=== PATIENT | female | born 1955 | race Two or more races ===

== ENCOUNTER 2018-11-08 15:04 | Emergency (ER) | payer OTHER ==
[~2018-11-08] VITALS: Ht 165.1 cm; Wt 68.0 kg
--- NOTE | 2018-11-08 15:30 | NUR ---
BIB SELF FOR BILATERAL HANDS PAIN AND SWELLING AND BILATERAL KNEE PAIN. TO ER BED 6, HOOKED TO MONITOR, PROVIDED W WARM BLANKET, AWAITING MD NEFF.
--- NOTE | 2018-11-08 15:31 | NUR ---
DR GONZALEZ AT BEDSIDE
[2018-11-08 15:35] LABS: BASOPHILS % (AUTO) 0.4 % (0.0-2.0); EOSINOPHILS % (AUTO) 2.3 % (0.0-6.0); HEMATOCRIT 36 % (33-45); HEMOGLOBIN 12.3 g/dL (11.5-14.8); LYMPHOCYTES # (AUTO) 2.9 /CMM (0.8-4.8); LYMPHOCYTES % (AUTO) 35.3 % (20.0-44.0); MEAN CORPUSCULAR HGB CONC 34 g/dl (31.0-36.0); MEAN CORPUSCULAR VOLUME 84 fL (82-100); MONOCYTES # (AUTO) 0.8 /CMM (0.1-1.30); MONOCYTES % (AUTO) 10.1 % (2.0-12.0); NEUTROPHILS # (AUTO) 4.3 /CMM (1.8-8.9); NEUTROPHILS % (AUTO) 51.9 % (43.0-81.0); PLATELET COUNT (AUTO) 288 /CMM (150-450); RED BLOOD CELL COUNT(AUTO) 4.28 MIL/uL (4.0-5.2); WHITE BLOOD COUNT (AUTO) 8.3 K/uL (4.3-11.0)
[2018-11-08 15:43] LABS: CALCIUM, SERUM 8.9 mg/dL (8.5-10.1); CREATININE 0.6 mg/dL (0.6-1.3); POTASSIUM 4.2 mmol/L (3.5-5.1)
[2018-11-08] MEDS ORDERED: IBUPROFEN 600 MG TABLET PO ONE ×2 (16:22→16:30)
--- NOTE | 2018-11-08 16:27 | NUR ---
Patient discharged to home in stable condition. Written and verbal after care instructions given. Patient verbalizes understanding of instruction.
[2018-11-08 16:29] VITALS: BP 142/86
== END 2018-11-08 16:30 | disposition home or self-care (01) ==
LOC: ER 15:07
DX: L03.113 Cellulitis of right upper limb (principal); M79.89 Other specified soft tissue disorders; G89.29 Other chronic pain; M54.9 Dorsalgia, unspecified
CPT/HCPCS: 36415; 73130-TC; 80048-TC; 83880; 85025-TC

== ENCOUNTER 2018-12-04 15:45 | Emergency (ER) | payer OTHER ==
[~2018-12-04] VITALS: Ht 162.6 cm; Wt 73.9 kg
--- NOTE | 2018-12-04 15:51 | NUR ---
BIB RA 39 FROM HOME, C/O CHEST AND UPPER BACK PAIN STARTING AROUND 1515. PT APPEARS ANXIOUS, MOANING AND CRYING. STATES PAIN IS LIKE PRESSURE AND 10/10. STATES SOME SOB, CHILLS, COUGH. HOOKED TO MONITOR, MADE COMFORTABLE. DAUGHTER AT BEDSIDE. READY FOR EVAL.
[2018-12-04] MEDS ORDERED: IV NS 0.9% 1,000 ML BAG IV ONE (16:00)
[2018-12-04 16:13] LABS: BASOPHILS % (AUTO) 0.4 % (0.0-2.0); EOSINOPHILS % (AUTO) 0.4 % (0.0-6.0); HEMATOCRIT 36 % (33-45); HEMOGLOBIN 12.2 g/dL (11.5-14.8); LYMPHOCYTES # (AUTO) 0.6 /CMM (0.8-4.8); LYMPHOCYTES % (AUTO) 6.4 % (20.0-44.0); MEAN CORPUSCULAR HGB CONC 34 g/dl (31.0-36.0); MEAN CORPUSCULAR VOLUME 84 fL (82-100); MONOCYTES # (AUTO) 0.3 /CMM (0.1-1.30); MONOCYTES % (AUTO) 3.6 % (2.0-12.0); NEUTROPHILS # (AUTO) 8.5 /CMM (1.8-8.9); NEUTROPHILS % (AUTO) 89.2 % (43.0-81.0); PLATELET COUNT (AUTO) 203 /CMM (150-450); RED BLOOD CELL COUNT(AUTO) 4.25 MIL/uL (4.0-5.2); WHITE BLOOD COUNT (AUTO) 9.6 K/uL (4.3-11.0)
--- NOTE | 2018-12-04 16:17 | NUR ---
PT TAKEN TO CT VIA EZRA
[2018-12-04 16:31] LABS: ALANINE AMINOTRANSFERASE 178 U/L (12-78); ALBUMIN 3.7 g/dL (3.4-5.0); ALKALINE PHOSPHATASE 180 U/L (46-116); ASPARTATE AMINOTRANSFERASE 241 U/L (15-37); BILIRUBIN,DIRECT 0.3 mg/dL (0.0-0.2); BILIRUBIN,TOTAL 0.8 mg/dL (0.2-1.0); CALCIUM, SERUM 9.1 mg/dL (8.5-10.1); CARBON DIOXIDE 26 mmol/L (21-32); CHLORIDE 101 mmol/L (98-107); CREATININE 0.8 mg/dL (0.6-1.3); GLUCOSE 130 mg/dL (74-106); POTASSIUM 3.9 mmol/L (3.5-5.1); SODIUM SERUM 138 mmol/L (136-145); TOTAL PROTEIN, SERUM 7.3 g/dL (6.4-8.2); UREA NITROGEN, BLOOD 14 mg/dL (7-18)
[2018-12-04] MEDS ORDERED: DULO30CA51 PO (16:35)
[2018-12-04] MEDS ORDERED: SENN-18 PO (16:35)
[2018-12-04] MEDS ORDERED: MELO-107 PO (16:35)
[2018-12-04] MEDS ORDERED: ERGO500014 PO (16:35)
[2018-12-04] MEDS ORDERED: IBUP-1953 PO (16:35)
--- NOTE | 2018-12-04 17:26 | NUR ---
URINE COLLECTED VIA STRAIGHT CATH AND SENT TO STAT LAB PER
[2018-12-04] MEDS ORDERED: CEFTRIAXONE 1GM BAG (ER ONLY) 50 ML IV ONE ×2 (17:29→17:30)
--- NOTE | 2018-12-04 17:35 | NUR ---
IV ABX INFUSING. PT ASKING FOR PAIN MED. AWARE
[2018-12-04 17:38] LABS: APPEARANCE,URINE Clear (CLEAR); BILIRUBIN,URINE Negative (NEGATIVE); BLOOD, URINE Small Ery/uL (NEGATIVE); COLOR,URINE Yellow (YELLOW); KETONES,URINE Negative (NEGATIVE); LEUKOCYTE ESTERASE ,URINE Negative (NEGATIVE); NITRITE, URINE Negative (NEGATIVE); PROTEIN,URINE Negative (NEGATIVE); UGLUCOSE Negative (NEGATIVE)
[2018-12-04] MEDS ORDERED: MORPHINE SULFATE INJ 2 MG/ML DISP.SYRIN ONE (17:40)
[2018-12-04] MEDS ORDERED: ONDANSETRON HCL/PF 4 MG/2 ML VIAL ONE (17:43)
[2018-12-04 17:47] LABS: BACTERIA,URINE Rare /HPF (None Seen); SQUAMOUS EPITHELIAL CELL,UR Few /HPF (None Seen); WBC,URINE NONE SEEN /HPF (0-3)
[2018-12-04] MEDS ORDERED: MORPHINE SULFATE INJ 2 MG/ML DISP.SYRIN IV ONE (18:00)
[2018-12-04] MEDS ORDERED: ONDANSETRON HCL/PF 4 MG/2 ML VIAL IVP ONE (18:00)
--- NOTE | 2018-12-04 18:19 | NUR ---
SPOKE WITH TABLE ASSEMBLER METAL, DEMIAN. PT WILL BE TRANSFERRED TO [facility]
[2018-12-04] MEDS ORDERED: ASPIRIN 325 MG TABLET PO ONE (19:00)
[2018-12-04] MEDS ORDERED: ASPIRIN 325 MG TABLET ONE (19:10)
--- NOTE | 2018-12-04 19:11 | NUR ---
PT ASLEEP IN BED. STILL TACHYCARDIC, BUT COMFORTABLE. NO COMPLAINTS AT THIS TIME. WILL CONT TO MONITOR.
[2018-12-04] MEDS ORDERED: ACETAMINOPHEN ES 500 MG TABLET ONE (19:22)
--- NOTE | 2018-12-04 19:47 | NUR ---
Pt accepted to [facility] bed [address] Dr Hernandez. # for report [phone]. Pending ambulance eta.
[2018-12-04] MEDS ORDERED: ACETAMINOPHEN ES 500 MG TABLET PO ONE (20:00)
--- NOTE | 2018-12-04 20:11 | NUR ---
REPORT GIVEN TO LUPE KELLEY AT [facility]. AWAITING AMBULANCE ETA
--- NOTE | 2018-12-04 21:18 | NUR ---
AMBULANCE ETA 5
[2018-12-04 21:32] VITALS: BP 107/52
--- NOTE | 2018-12-04 22:25 | NUR ---
REPORT GIVEN TO BHARGAV SNYDER FROM [facility] [address] FOR TRANSFER
== END 2018-12-04 22:30 | disposition short-term general hospital (02) ==
LOC: ER 15:47
DX: R07.89 Other chest pain (principal); R10.84 Generalized abdominal pain; R50.9 Fever, unspecified; R00.0 Tachycardia, unspecified; I10 Essential (primary) hypertension; M54.9 Dorsalgia, unspecified; G89.29 Other chronic pain
CPT/HCPCS: 36415; 71045; 74176; 80048; 80076; 81001; 83605 ×2; 84484; 85025; 85730; 87040 ×2; 87086; 93005 ×2; 96365; 96375; 99285; J0696; J2270; J2405; J7030; 81000-TC

== ENCOUNTER 2022-02-27 07:41 | Emergency (ER) | payer OTHER ==
[~2022-02-27] VITALS: Ht 152.4 cm; Wt 73.9 kg
[~2022-02-27 07:41] MED LIST: DULO30CA52 PO; ERGO500014 PO; IBUP-1953 PO; MELO-107 PO; SENN-18 PO
--- NOTE | 2022-02-27 07:50 | NUR ---
TO ER BED 7, [id number] C/O FACIAL SWELLING AND BODY HIVES STARTED LAST NIGHT, GIVEN 50MG BENADRYL ENROUTE, AAOX3, BREATHING EVEN AND NON LABORED, CONNECTED TO MONITOR, AWAITING MD NEFF
[2022-02-27] MEDS ORDERED: methylPREDNISolone SOD SUCC 125 MG/2ML VIAL ONE (07:51)
[2022-02-27] MEDS ORDERED: FAMOTIDINE/PF INJ 20 MG/2 ML VIAL IV ONE ×2 (07:53→08:00)
[2022-02-27] MEDS ORDERED: methylPREDNISolone SOD SUCC 125 MG/2ML VIAL IV ONE (08:00)
--- NOTE | 2022-02-27 08:42 | NUR ---
DAUGHTER CALLED LEFT CONTACT # [phone]
[2022-02-27] MEDS ORDERED: PRED20TA PO ×2 (09:49→10:31)
[2022-02-27] MEDS ORDERED: EPIN0.3P3 IM ×2 (09:49→10:31)
[2022-02-27 09:53] VITALS: BP 109/71
--- NOTE | 2022-02-27 09:53 | NUR ---
IV removed. Catheter intact and site benign. Pressure and 4x4 applied to site. No bleeding noted.Patient discharged to home in stable condition. Written and verbal after care instructions given. Patient verbalizes understanding of instruction.
[2022-02-28] MEDS ORDERED: FAMOTIDINE (20 MG) 20 MG TABLET PO ONE (09:30)
== END 2022-02-27 10:36 | disposition home or self-care (01) ==
LOC: ER 07:43
DX: K13.0 Diseases of lips (principal); T46.6X5A Adverse effect of antihyperlipidemic and antiarteriosclerotic drugs, initial encounter; G89.29 Other chronic pain; I10 Essential (primary) hypertension; Z79.899 Other long term (current) drug therapy; Y92.89 Other specified places as the place of occurrence of the external cause
CPT/HCPCS: 99284; 96374; 96375; J3490; J2930

== ENCOUNTER 2022-02-28 08:54 | Emergency (ER) | payer OTHER ==
[~2022-02-28] VITALS: Ht 165.1 cm; Wt 79.4 kg
[~2022-02-28 08:54] MED LIST changes: +EPIN0.3P3 IM; +PRED20TA PO
--- NOTE | 2022-02-28 09:03 | NUR ---
TO ER BED 7. LIT C/O SOB AND ITCHINESS SINCE YESTERDAY, RECENTLY STARTED NEW CHOLESTEROL MEDICATION. ATTACHED TO MONITOR, VITALS ARE [place] NORMAL LMITS, PT SATTING AT 98% ON ROOM AIR. WARM BLAKNKET PROVIDED FOR COMFORT. AWAITING MD ORDERS.
--- NOTE | 2022-02-28 09:03 | NUR ---
DR MINER AT BEDSIDE FOR EVAL
[2022-02-28] MEDS ORDERED: EPINEPHRINE (1:1000) 1 MG/ML AMPUL ONE (09:16)
[2022-02-28] MEDS ORDERED: diphenhydrAMINE HCL 50 MG/ML VIAL ONE (09:17)
[2022-02-28] MEDS ORDERED: methylPREDNISolone SOD SUCC 125 MG/2ML VIAL ONE (09:17)
--- NOTE | 2022-02-28 09:29 | NUR ---
SUPERVISOR WOOD CREW AT BEDSIDE FOR XRAY
[2022-02-28] MEDS ORDERED: methylPREDNISolone SOD SUCC 125 MG/2ML VIAL IV ONE (09:30)
[2022-02-28] MEDS ORDERED: diphenhydrAMINE HCL 50 MG/ML VIAL IV ONE (09:30)
[2022-02-28] MEDS ORDERED: EPINEPHRINE (1:1000) MDV 30 MG/30ML VIAL SUBCUT ONE (09:30)
[2022-02-28] MEDS ORDERED: IV NS 0.9% 1,000 ML BAG IV ONE (09:30)
--- NOTE | 2022-02-28 09:31 | NUR ---
X RAY AT BEDSIDE
[2022-02-28 09:58] LABS: BASOPHILS % (AUTO) 0.3 % (0.0-2.0); EOSINOPHILS % (AUTO) 0.2 % (0.0-6.0); HEMATOCRIT 37 % (33-45); HEMOGLOBIN 12.5 g/dL (11.5-14.8); LYMPHOCYTES # (AUTO) 3.2 K/uL (0.8-4.8); LYMPHOCYTES % (AUTO) 23.8 % (20.0-44.0); MEAN CORPUSCULAR HGB CONC 33 g/dl (31.0-36.0); MEAN CORPUSCULAR VOLUME 82 fL (82-100); MONOCYTES # (AUTO) 1.1 K/uL (0.1-1.30); MONOCYTES % (AUTO) 7.9 % (2.0-12.0); NEUTROPHILS # (AUTO) 9.1 K/uL (1.8-8.9); NEUTROPHILS % (AUTO) 67.8 % (43.0-81.0); PLATELET COUNT (AUTO) 318 K/uL (150-450); RED BLOOD CELL COUNT(AUTO) 4.54 MIL/uL (4.0-5.2); WHITE BLOOD COUNT (AUTO) 13.4 K/uL (4.3-11.0)
[2022-02-28 10:09] LABS: CALCIUM, SERUM 8.8 mg/dL (8.5-10.1); CARBON DIOXIDE 26 mmol/L (21-32); CHLORIDE 103 mmol/L (98-107); CREATININE 0.9 mg/dL (0.6-1.3); GLUCOSE 155 mg/dL (74-106); POTASSIUM 3.6 mmol/L (3.5-5.1); SODIUM SERUM 138 mmol/L (136-145); UREA NITROGEN, BLOOD 14 mg/dL (7-18)
--- NOTE | 2022-02-28 12:35 | NUR ---
AAo, Updated with plan of care. NO Acute changes
--- NOTE | 2022-02-28 13:31 | NUR ---
NO acute changes. NO obvious distress "Wanting to go home/Signing out AMA-here too long"
[2022-02-28 13:33] VITALS: BP 120/78
[2022-03-01] MEDS ORDERED: OMEP20CA15 PO (13:57)
[2022-03-01] MEDS ORDERED: ATOR40TA PO (13:57)
[2022-03-01] MEDS ORDERED: METO25TA4 PO (13:57)
== END 2022-02-28 13:33 | disposition home or self-care (01) ==
LOC: ER 08:56
DX: R07.0 Pain in throat (principal); R22.1 Localized swelling, mass and lump, neck; T50.905A Adverse effect of unspecified drugs, medicaments and biological substances, initial encounter; I10 Essential (primary) hypertension; G89.29 Other chronic pain; Z79.899 Other long term (current) drug therapy; Y92.89 Other specified places as the place of occurrence of the external cause
CPT/HCPCS: 99285; 96374; 71045; 96361; 96375; 93005; 85025; 80048; 36415; 84484; 96372; J1200; J0171 ×2; J2930; J7030

== ENCOUNTER 2022-03-01 06:42 | Inpatient (IN) | payer OTHER ==
[~2022-03-01] VITALS: Ht 165.1 cm; Wt 76.7 kg
--- NOTE | 2022-03-01 06:51 | NUR ---
PATIENT [id number] FROM HOME C/O BODY RASH FOR THE PAST 3-4 DAYS. PATIENT IS A/O X 4, RR EVEN AND UNLABORED, NO SOB NOTED. PATIENT IN NO ACUTE DISTRESS. PATIENT TAKEN TO ER BED 11. PATIENT CONNECTED TO CARIDAC AND POX MONITORS.
[2022-03-01] MEDS ORDERED: FAMOTIDINE/PF INJ 20 MG/2 ML VIAL IV ONE ×2 (08:30→08:40)
[2022-03-01] MEDS ORDERED: diphenhydrAMINE HCL 50 MG/ML VIAL IV ONE (08:30)
[2022-03-01] MEDS ORDERED: diphenhydrAMINE HCL 50 MG/ML VIAL ONE (08:40)
--- NOTE | 2022-03-01 09:02 | NUR ---
IV LINE ESTABLISHED ON LH #20, MEDICATIONS BENADRYL AND PEPCID IV ADMINISTERED INDICATED. LINE SALINE LOCKED.
--- NOTE | 2022-03-01 09:30 | NUR ---
PT COMPLAINT OF CHEST PAIN RAD TO NECK, DR MOSHER MADE AWARE.
[2022-03-01 10:20] LABS: BASOPHILS # (AUTO) 0.1 K/uL (0.0-0.2); BASOPHILS % (AUTO) 0.6 % (0.0-2.0); HEMATOCRIT 36 % (33-45); LYMPHOCYTES # (AUTO) 3.1 K/uL (0.8-4.8); LYMPHOCYTES % (AUTO) 19.6 % (20.0-44.0); MEAN CORPUSCULAR HGB CONC 33 g/dl (31.0-36.0); MEAN CORPUSCULAR VOLUME 83 fL (82-100); MONOCYTES # (AUTO) 1.2 K/uL (0.1-1.30); MONOCYTES % (AUTO) 7.6 % (2.0-12.0); NEUTROPHILS # (AUTO) 11.4 K/uL (1.8-8.9); NEUTROPHILS % (AUTO) 72.2 % (43.0-81.0); PLATELET COUNT (AUTO) 320 K/uL (150-450); RED BLOOD CELL COUNT(AUTO) 4.39 MIL/uL (4.0-5.2); WHITE BLOOD COUNT (AUTO) 15.8 K/uL (4.3-11.0)
[2022-03-01 10:47] LABS: CALCIUM, SERUM 8.9 mg/dL (8.5-10.1); CREATININE 0.8 mg/dL (0.6-1.3); POTASSIUM 4.1 mmol/L (3.5-5.1)
[2022-03-01] MEDS ORDERED: EPINEPHRINE (1:1000) MDV 30 MG/30ML VIAL IM ONE (13:00)
[2022-03-01] MEDS ORDERED: EPINEPHRINE (1:1000) 1 MG/ML AMPUL ONE (13:00)
--- NOTE | 2022-03-01 13:33 | NUR ---
MOVE SHEET SUBMITTED.
--- NOTE | 2022-03-01 13:38 | NUR ---
COVID SWAB COLLECTED AND SENT TO LAB
[2022-03-01] MEDS ORDERED: ATOR40TA PO (13:57)
[2022-03-01] MEDS ORDERED: OMEP20CA15 PO (13:57)
[2022-03-01] MEDS ORDERED: METO25TA4 PO (13:57)
--- NOTE | 2022-03-01 14:20 | NUR ---
EPIC PAGED, AWAITING HOSPITALIST CALL BACK
--- NOTE | 2022-03-01 14:46 | NUR ---
BED GIVEN 120 AT 4 PM
--- NOTE | 2022-03-01 15:45 | NUR ---
PT REPORT GIVEN TO LUPE VEGAS
--- NOTE | 2022-03-01 16:59 | NUR ---
PT TRANSFERRED TO 120 VIA [facility] ACLS PROTOCOL. WARM HANDOFF GIVEN TO LUPE VEGAS.
[2022-03-01] MEDS ORDERED: ACETAMINOPHEN 325 MG TABLET PO PRN (17:30)
[2022-03-01] MEDS ORDERED: Z GUARD REMEDY 4 OZ OINT TP PRN (17:30)
[2022-03-01] MEDS ORDERED: ONDANSETRON HCL/PF 4 MG/2 ML VIAL IVP PRN (17:30)
[2022-03-01] MEDS ORDERED: MAG HYDROX/AL HYDROX/SIMETH 30 ML UDC PO PRN (17:30)
--- NOTE | 2022-03-01 17:30 | NUR ---
RN NOTE PATIENT WAS ADMITTED FROM ER, PATIENT CAME TO UNIT VIA GURNEY WITH NO SIGNS OF DISTRESS. REPORT RECEIVED FROM ER NURSE. V/S TAKEN STABLE AND RECORDED, T:98.1, P:75, R:18, BP:119/62, O2:97% 2L OXYGEN VIA NC. SKIN ASSESSMENT DONE AND PICTURES TAKEN, GEN. BODY RASH. PATIENT WAS ORIENTED TO ROOM SET UP AND EDUCATED ON THE USE OF CALL LIGHT. PATIENT IS IN ROOM AWAKE RESTING, A/O X4. NO S/S OF PAIN NOTED AT THIS TIME. ON 2L OXYGEN VIA NC, NO DISTRESS OR SHORTNESS OF BREATH NOTED. IV ACCESS L HAND #20G, INTACT PATENT AND FLUSHING WELL. PATIENT WITH EXTERNAL INFORMATION CLERK WITH CURRENT READING OF SR AND HR OF 75, NO CARDIAC DISTRESS NOTED. FALL AND SAFETY MEASURES IN PLACE, BED ALARM ON, BED IN LOW AND LOCK POSITION, CALL LIGHT AND TABLE WITHIN EASY REACH, SIDE RAILS UP X2, WILL CONTINUE TO MONITOR AND ENDORSER TO NEXT SHIFT.
[2022-03-01] MEDS: methylPREDNISolone SOD SUCC 40 MG/ML VIAL IV SCH ×2 (17:52→22:17)
[2022-03-01 19:02] VITALS: BP 119/62
[2022-03-01 19:04] VITALS: BP 129/76
--- NOTE | 2022-03-01 19:30 | NUR ---
RN NOTE PATIENT IN BED, AO X 4, MALTESE/[place]ALV[place]OREAN SPEAKING BUT UNDERSTANDS SIMPLE [place], IN NO S/SX OF ACUTE DISTRESS AT THIS TIME, BREATHING EVEN AND UNLABORED, SATURATION AT 100% ON 2L VIA NC, SR ON THE MONITOR, HR IS 83. IV LINE AT L HAND 20G INFILTRATED, INSERTED ANOTHER IV LINE AT LFA 22G, SALINE LOCKED. GENERALIZED RASH/URTICARIA NOTED. SAFETY MEASURES IMPLEMENTED. HEAD OF BED ELEVATED. BED IS LOCKED, IN LOWEST POSITION AND SIDE RAILS UP. CALL LIGHT WITHIN REACH OF THE PATIENT. WILL CONTINUE TO MONITOR AND REASSESS FOR ANY CHANGES.
[2022-03-01 20:00] VITALS: BP 128/65
[2022-03-01] MEDS ORDERED: MAGNESIUM HYDROXIDE 30 ML UDC PO PRN (22:00)
[2022-03-01] MEDS ORDERED: ZOLPIDEM TARTRATE 5 MG TABLET PO PRN (22:00)
[2022-03-01] MEDS: ATORVASTATIN 40 MG TABLET PO SCH (22:16)
[2022-03-01] MEDS: FAMOTIDINE (20 MG) 20 MG TABLET PO SCH (22:16)
[2022-03-01] MEDS: SENNOSIDES 8.6 MG TABLET PO SCH (22:17)
[2022-03-02] VITALS: BP 115/64
[2022-03-02] MEDS: diphenhydrAMINE HCL ELIX 25 MG/10 ML UDC PO PRN ×3 (00:23→13:51)
[2022-03-02 04:00] VITALS: BP 105/60
[2022-03-02] MEDS: methylPREDNISolone SOD SUCC 40 MG/ML VIAL IV SCH ×3 (05:20→21:31)
[2022-03-02 07:07] LABS: BASOPHILS % (AUTO) 0.1 % (0.0-2.0); HEMATOCRIT 37 % (33-45); LYMPHOCYTES # (AUTO) 1.7 K/uL (0.8-4.8); LYMPHOCYTES % (AUTO) 19.6 % (20.0-44.0); MEAN CORPUSCULAR HGB CONC 33 g/dl (31.0-36.0); MEAN CORPUSCULAR VOLUME 83 fL (82-100); MONOCYTES # (AUTO) 0.2 K/uL (0.1-1.30); MONOCYTES % (AUTO) 2.6 % (2.0-12.0); NEUTROPHILS # (AUTO) 6.7 K/uL (1.8-8.9); NEUTROPHILS % (AUTO) 77.7 % (43.0-81.0); PLATELET COUNT (AUTO) 337 K/uL (150-450); RED BLOOD CELL COUNT(AUTO) 4.43 MIL/uL (4.0-5.2); WHITE BLOOD COUNT (AUTO) 8.6 K/uL (4.3-11.0)
[2022-03-02 07:09] LABS: CALCIUM, SERUM 8.3 mg/dL (8.5-10.1); MAGNESIUM 2.1 mg/dL (1.8-2.4); PHOSPHORUS 4.4 mg/dL (2.5-4.9); POTASSIUM 4.3 mmol/L (3.5-5.1)
--- NOTE | 2022-03-02 07:25 | NUR ---
BUTT SAWYER OPENING NOTES: RECEIVED PATIENT IN BED, ASLEEP BUT EASILY AROUSES TO VOICE AND TACTILE STIMULI. NO SOB NOTED, BREATHING EVEN AND UNLABORED. ON OXYGEN @ 2L/MIN VIA N/C BUT WITH OXYGEN SATURATION OF 97%. ON SR ON TELE MONITOR WITH HR OF 67. HAS SALINE LOCK ON LEFT FOREARM # 22, INTACT, PATENT, FLUSHES WELL, NO S/S OF INFILTRATION. BED LOCKED AND IN LOWEST POSITION, CALL LIGHT WITHIN REACH. SR UP X 2. WILL CONTINUE TO MONITOR PATIENT THROUGHOUT SHIFT.
[2022-03-02 08:00] VITALS: BP 105/60
[2022-03-02] MEDS: FAMOTIDINE (20 MG) 20 MG TABLET PO SCH ×2 (09:43→21:30)
[2022-03-02] MEDS: METOPROLOL SUCCINATE 25 MG TAB.SR.24H PO SCH (09:48)
[2022-03-02 12:00] VITALS: BP 107/55
[2022-03-02 16:00] VITALS: BP 112/62
--- NOTE | 2022-03-02 16:45 | NUR ---
INSIDE ACCOUNT REPRESENTATIVE CLOSING NOTES: PATIENT IN BED, AWAKE, ALERT, ORIENTED X 4. NO SOB NOTED, BREATHING EVEN AND UNLABORED. PATIENT HAS BEEN REMOVING HER OXYGEN BUT HER OXYGEN SATURATION RA IS 97%. ON SR ON TELE MONITOR WITH HR OF 68. HAS SALINE LOCK ON LEFT FOREARM # 22, INTACT, PATENT, FLUSHES WELL, NO S/S OF INFILTRATION. BED LOCKED AND IN LOWEST POSITION, CALL LIGHT WITHIN REACH. SR UP X 2. WILL ENDORSE TO NEXT SHIFT NURSE.
--- NOTE | 2022-03-02 19:30 | NUR ---
APPAREL CUTTER OPENING NOTES: RECEIVED PATIENT IN AWAKE BED, O2 2L VIA NC, TOLERATING WELL, NO S/S OF ACUTE DISTRESS TELE MONITOR READING SR WITH ELEVATED T WAVES. IV ACCESS ON LFA 22# S/L. INTACT AND PATENT. SLIGHT SWELLING AROUND IV, WILL CONTINUE TO ASSESS FOR INFILTRATION. BED LOCKED AND IN LOWEST POSITION, CALL LIGHT WITHIN REACH. SR UP X 2. WILL CONTINUE TO MONITOR PATIENT THROUGHOUT SHIFT.
[2022-03-02 20:00] VITALS: BP 104/56
--- NOTE | 2022-03-02 20:00 | NUR ---
NEW IV PLACED IN R HAND #22 S/L
[2022-03-02] MEDS: SENNOSIDES 8.6 MG TABLET PO SCH (21:30)
[2022-03-02] MEDS: ATORVASTATIN 40 MG TABLET PO SCH (21:31)
[2022-03-03] VITALS: BP 133/66
[2022-03-03 04:00] VITALS: BP 128/51
[2022-03-03] MEDS: diphenhydrAMINE HCL 50 MG/ML VIAL IV PRN ×3 (04:26→21:30)
--- NOTE | 2022-03-03 04:39 | NUR ---
RN NOTE PATIENT COMPLAINED MIDDLE EAR PAIN. I ADVISED DR. BRIZUELA. DR. BRIZUELA SAID TO ENDORSE TO MORNING NURSE FOR THE DAYTIME PROVIDER TO ADDRESS THE ISSUE. WILL ENDORSE TO MORNING NURSE
[2022-03-03] MEDS: methylPREDNISolone SOD SUCC 40 MG/ML VIAL IV SCH ×3 (05:33→21:25)
--- NOTE | 2022-03-03 05:33 | NUR ---
RN NOTE PATIENT ADVISED EVERYTHING WE PUSH THROUGH IV HURTS/LANGE A NEW IV WAS ALREADY PLACED. WILL ALSO ENDORSE TO MORNING SHIFT FOR DAYTIME TO ADDRESS.
--- NOTE | 2022-03-03 06:49 | NUR ---
TRANSPORTATION AID CLOSING NOTES: PATIENT IN AWAKE BED, O2 2L VIA NC, TOLERATING WELL, NO S/S OF ACUTE DISTRESS TELE MONITOR READING SR . IV ACCESS ON L HAND 22# S/L. INTACT AND PATENT. ALL DUE MEDS GIVEN/ PATIENT ADISED IT BURNED. BED LOCKED AND IN LOWEST POSITION, CALL LIGHT WITHIN REACH. SR UP X 2. WILL ENDORSE TO MORNING SHIFT FOR CONTINUATION OF CARE
--- NOTE | 2022-03-03 07:30 | NUR ---
OPENING NOTES: RECEIVED PATIENT IN AWAKE BED, O2 2L VIA NC, TOLERATING WELL, NO S/S OF ACUTE DISTRESS TELE MONITOR READING SR WITH ELEVATED. IV ACCESS ON RFA 22# S/L. INTACT AND PATENT. WILL CONTINUE TO ASSESS FOR INFILTRATION. BED LOCKED AND IN LOWEST POSITION, CALL LIGHT WITHIN REACH. SR UP X 2. WILL CONTINUE TO MONITOR PATIENT THROUGHOUT SHIFT.
[2022-03-03 07:35] LABS: BASOPHILS % (AUTO) 0.2 % (0.0-2.0); HEMATOCRIT 35 % (33-45); HEMOGLOBIN 11.7 g/dL (11.5-14.8); LYMPHOCYTES % (AUTO) 21.6 % (20.0-44.0); MEAN CORPUSCULAR HGB CONC 34 g/dl (31.0-36.0); MEAN CORPUSCULAR VOLUME 83 fL (82-100); MONOCYTES # (AUTO) 0.6 K/uL (0.1-1.30); MONOCYTES % (AUTO) 6.8 % (2.0-12.0); NEUTROPHILS # (AUTO) 6.6 K/uL (1.8-8.9); NEUTROPHILS % (AUTO) 71.4 % (43.0-81.0); PLATELET COUNT (AUTO) 335 K/uL (150-450); WHITE BLOOD COUNT (AUTO) 9.3 K/uL (4.3-11.0)
[2022-03-03 07:39] LABS: CALCIUM, SERUM 8.6 mg/dL (8.5-10.1); CREATININE 0.9 mg/dL (0.6-1.3); MAGNESIUM 2.4 mg/dL (1.8-2.4); PHOSPHORUS 4.3 mg/dL (2.5-4.9)
[2022-03-03 08:00] VITALS: BP 115/60
[2022-03-03] MEDS: FAMOTIDINE (20 MG) 20 MG TABLET PO SCH ×2 (09:00→21:26)
[2022-03-03] MEDS ORDERED: ERGOCALCIFEROL (VITAMIN D 2) 50,000 UNIT CAPSULE PO SCH (09:00)
[2022-03-03] MEDS: METOPROLOL SUCCINATE 25 MG TAB.SR.24H PO SCH (09:00)
[2022-03-03 12:00] VITALS: BP 120/59
[2022-03-03 16:00] VITALS: BP 108/55
--- NOTE | 2022-03-03 19:00 | NUR ---
CLOSING NOTES: PATIENT IN BED, AWAKE, ALERT, ORIENTED X 4. NO SOB NOTED, BREATHING EVEN AND UNLABORED. PATIENT HAS BEEN REMOVING HER OXYGEN BUT HER OXYGEN SATURATION RA IS 97%. ON SR ON TELE MONITOR WITH HR OF 72. BED LOCKED AND IN LOWEST POSITION, CALL LIGHT WITHIN REACH. SR UP X 2. WILL ENDORSE TO DATA CODER OPERATOR NURSE.
[2022-03-03 20:00] VITALS: BP 120/62
--- NOTE | 2022-03-03 20:00 | NUR ---
GRAIN CLEANER NOTE PT IN BED SITTING UP. A/O X 4, THAI GREEK SPEAKING. NO SOB, NO DISTRESS OR DISCOMFORT NOTED. DENIES PAIN. C/O ITCHING ALL OVER AT TIMES. ON TELE SR HR 68. SL RT HAND #22 G INTACT AND PATENT. SIDE RAIL UP X 2 AND CALL LIGHT WITHIN REACH. VSS. CONTINUE TO MONITOR.
[2022-03-03] MEDS: SENNOSIDES 8.6 MG TABLET PO SCH (21:26)
[2022-03-03] MEDS: ATORVASTATIN 40 MG TABLET PO SCH (21:27)
[2022-03-04] VITALS: BP 118/69
[2022-03-04 04:00] VITALS: BP 90/50
[2022-03-04] MEDS: methylPREDNISolone SOD SUCC 40 MG/ML VIAL IV SCH ×2 (04:36→12:39)
[2022-03-04 06:11] LABS: BASOPHILS % (AUTO) 0.2 % (0.0-2.0); HEMATOCRIT 34 % (33-45); HEMOGLOBIN 11.3 g/dL (11.5-14.8); LYMPHOCYTES # (AUTO) 1.8 K/uL (0.8-4.8); LYMPHOCYTES % (AUTO) 21.9 % (20.0-44.0); MEAN CORPUSCULAR HGB CONC 34 g/dl (31.0-36.0); MEAN CORPUSCULAR VOLUME 82 fL (82-100); MONOCYTES # (AUTO) 0.4 K/uL (0.1-1.30); MONOCYTES % (AUTO) 4.7 % (2.0-12.0); NEUTROPHILS % (AUTO) 73.2 % (43.0-81.0); PLATELET COUNT (AUTO) 320 K/uL (150-450); RED BLOOD CELL COUNT(AUTO) 4.08 MIL/uL (4.0-5.2); WHITE BLOOD COUNT (AUTO) 8.2 K/uL (4.3-11.0)
[2022-03-04 06:42] LABS: CALCIUM, SERUM 8.4 mg/dL (8.5-10.1); CREATININE 0.9 mg/dL (0.6-1.3); MAGNESIUM 2.3 mg/dL (1.8-2.4); PHOSPHORUS 4.8 mg/dL (2.5-4.9); POTASSIUM 4.1 mmol/L (3.5-5.1)
--- NOTE | 2022-03-04 07:30 | NUR ---
RN OPENING NOTE PATIENT IS IN BED, AWAKE, ALERT AND ORIENTED X 4. ON ROOM AIR. DENIES PAIN, BREATHING UNLABORED AND NOT IN ANY FORM OF DISTRESS. VERBALIZES ITCHY SKIN, NOTED SKIN RASH ALL OVER THE BODY. RIGHT HAND SALINE LOCK INTACT AND PATENT. ALL HOSPITAL SAFETY PRECAUTIONS IN PLACE. BED IS LOCKED IN LOWEST POSITION,3 SIDE RAILS UP, CALL LIGHT WITHIN REACH. WILL CONTINUE TO MONITOR THROUGHOUT SHIFT.
[2022-03-04 08:00] VITALS: BP 118/61
[2022-03-04] MEDS: FAMOTIDINE (20 MG) 20 MG TABLET PO SCH (08:26)
[2022-03-04] MEDS: METOPROLOL SUCCINATE 25 MG TAB.SR.24H PO SCH (08:26)
[2022-03-04] MEDS: diphenhydrAMINE HCL 50 MG/ML VIAL IV PRN (08:26)
[2022-03-04 12:14] VITALS: BP 100/58
[2022-03-04] MEDS ORDERED: PRED20TA PO (15:02)
[2022-03-04] MEDS ORDERED: EPIN0.3P3 IM (15:02)
[2022-03-04] MEDS ORDERED: FAMO-131 PO (15:02)
[2022-03-04] MEDS ORDERED: HYDR-500 PO (15:02)
[2022-03-04 16:00] VITALS: BP 112/53
--- NOTE | 2022-03-04 16:37 | NUR ---
RN CLOSING NOTE PATIENT IS DISCHARGED TO HOME IN STABLE CONDITION. PATIENT WAS ACCOMPANIED TO THE HOSPITAL LOBBY BY RN AND SUAD COTO AND PATIENT WAS PICKED UP BY DAUGHTER AT THE HOSPITAL LOBBY AND TRANSPORTED HOME VIA PERSONAL CAR. ALL FORMS SIGNED, DISCHARGE PACKET WAS GIVEN TO PATIENT. IV DISCONTINUED AND COVERED WITH DRY DRESSING. SKIN ISSUES PHOTOGRAPHED AND DOCUMENTED PER HOSPITAL PROTOCOL. DISCHARGE V/S FOLLOWS: T 97.8, HR 56, RR 15, O2 SAT 95% BP 112/53.
== END 2022-03-04 17:51 | disposition home or self-care (01) | DRG 385 ==
LOC: ER 06:54 → TELE-TD 15:07 → TELE1 03-02 04:54
PROVIDERS: ADMIT Student in an Organized Health Care Education/Training Program; ATTEND Student in an Organized Health Care Education/Training Program
DX: L50.0 Allergic urticaria (principal); D72.829 Elevated white blood cell count, unspecified; G89.29 Other chronic pain; I10 Essential (primary) hypertension; L50.9 Urticaria, unspecified; R13.10 Dysphagia, unspecified; Z20.822 Contact with and (suspected) exposure to COVID-19; E78.5 Hyperlipidemia, unspecified; T50.995A Adverse effect of other drugs, medicaments and biological substances, initial encounter; T46.6X5A Adverse effect of antihyperlipidemic and antiarteriosclerotic drugs, initial encounter; X58.XXXA Exposure to other specified factors, initial encounter; Y92.009 Unspecified place in unspecified non-institutional (private) residence as the place of occurrence of the external cause
CPT/HCPCS: 36415; 80048-TC; 83735-TC; 84100-TC; 84484-TC; 85025-TC; 92526; 92611-TC; C9803; G0378; J0171; J1200; J2920; J3490; Q0163

== ENCOUNTER 2023-12-06 23:13 | Emergency (ER) | payer MEDICARE, OTHER ==
[~2023-12-06] VITALS: Ht 162.6 cm; Wt 90.7 kg
[~2023-12-06 23:13] MED LIST changes: -DULO30CA52 PO; +FAMO-131 PO; +HYDR-500 PO; -IBUP-1953 PO; -MELO-107 PO; +METO25TA4 PO; -SENN-18 PO
[2023-12-06 23:46] LABS: BASOPHILS # (AUTO) 0.1 K/uL (0.0-0.2); BASOPHILS % (AUTO) 0.9 % (0.0-2.0); EOSINOPHILS # (AUTO) 0.1 K/uL (0.0-0.7); EOSINOPHILS % (AUTO) 1.5 % (0.0-6.0); HEMATOCRIT 39 % (33-45); HEMOGLOBIN 13.2 g/dL (11.5-14.8); LYMPHOCYTES # (AUTO) 3.6 K/uL (0.8-4.8); LYMPHOCYTES % (AUTO) 36.7 % (20.0-44.0); MEAN CORPUSCULAR HEMOGLOBIN 28 PG (26.0-33.0); MEAN CORPUSCULAR HGB CONC 34 g/dl (31.0-36.0); MEAN CORPUSCULAR VOLUME 82 fL (82-100); MONOCYTES # (AUTO) 0.9 K/uL (0.1-1.30); MONOCYTES % (AUTO) 8.7 % (2.0-12.0); NEUTROPHILS # (AUTO) 5.2 K/uL (1.8-8.9); NEUTROPHILS % (AUTO) 52.2 % (43.0-81.0); PLATELET COUNT (AUTO) 295 K/uL (150-450); RED CELL DISTRIBUTION WIDTH 14.5 % (11.5-15.0); WHITE BLOOD COUNT (AUTO) 9.9 K/uL (4.3-11.0)
[2023-12-06 23:53] LABS: ACETONE, SERUM NEGATIVE (NEGATIVE)
[2023-12-06 23:54] LABS: CALCIUM, SERUM 9.9 mg/dL (8.5-10.1); CARBON DIOXIDE 29 mmol/L (21-32); CHLORIDE 100 mmol/L (98-107); CREATININE 0.8 mg/dL (0.6-1.3); GLUCOSE 173 mg/dL (74-106); POTASSIUM 3.7 mmol/L (3.5-5.1); SODIUM SERUM 137 mmol/L (136-145); UREA NITROGEN, BLOOD 16 mg/dL (7-18)
[2023-12-06] MEDS ORDERED: ONDANSETRON HCL/PF 4 MG/2 ML VIAL ONE (23:54)
[2023-12-06] MEDS: IV NS 0.9% 1,000 ML BAG IV ONE (23:58)
[2023-12-06] MEDS: ONDANSETRON HCL/PF - ER 4 MG/2 ML VIAL IV ONE (23:58)
[2023-12-07] LABS: ALANINE AMINOTRANSFERASE 31 U/L (12-78); ALBUMIN 3.5 g/dL (3.4-5.0); ALKALINE PHOSPHATASE 145 U/L (46-116); ASPARTATE AMINOTRANSFERASE 9 U/L (15-37); BILIRUBIN,TOTAL 0.3 mg/dL (0.2-1.0); TOTAL PROTEIN, SERUM 7.3 g/dL (6.4-8.2)
[2023-12-07] MEDS ORDERED: METF-440 PO (00:36)
[2023-12-07] MEDS: IV NS 0.9% 1,000 ML BAG IV ONE (00:50)
[2023-12-07] MEDS ORDERED: METFORMIN 500 MG TABLET ONE (00:51)
[2023-12-07] MEDS: METFORMIN 500 MG TABLET PO ONE (00:54)
[2023-12-07 02:35] VITALS: BP 113/73; TEMP 98.5; O2SAT 97
[2023-12-08] MEDS ORDERED: METF-440 PO (15:06)
== END 2023-12-07 02:36 | disposition home or self-care (01) ==
LOC: ER 23:14
DX: E11.9 Type 2 diabetes mellitus without complications (principal); I10 Essential (primary) hypertension; Z87.39 Personal history of other diseases of the musculoskeletal system and connective tissue
CPT/HCPCS: 99284; 96374; 96361 ×2; 93005; 85025; 82010; 36415; 80053; 82962 ×4; J2405 ×2; J7030

== ENCOUNTER 2024-04-25 10:53 | Day surgery (SDC) | payer MEDICARE, OTHER ==
[~2024-04-25 10:53] MED LIST changes: +METF-440 PO
[2024-04-25] MEDS ORDERED: LIDOCAINE 100MG/5ML DISP SYR ONE (12:24)
[2024-04-25] MEDS ORDERED: PROPOFOL 40 ML IV ONE (12:24)
[2024-04-25 12:28] LABS: BASOPHILS # (AUTO) 0.1 K/uL (0.0-0.2); BASOPHILS % (AUTO) 0.7 % (0.0-2.0); EOSINOPHILS # (AUTO) 0.1 K/uL (0.0-0.7); EOSINOPHILS % (AUTO) 1.7 % (0.0-6.0); HEMATOCRIT 40 % (33-45); HEMOGLOBIN 13.4 g/dL (11.5-14.8); LYMPHOCYTES # (AUTO) 2.2 K/uL (0.8-4.8); LYMPHOCYTES % (AUTO) 28.1 % (20.0-44.0); MEAN CORPUSCULAR HEMOGLOBIN 28 PG (26.0-33.0); MEAN CORPUSCULAR HGB CONC 33 g/dl (31.0-36.0); MEAN CORPUSCULAR VOLUME 84 fL (82-100); MONOCYTES # (AUTO) 0.7 K/uL (0.1-1.30); MONOCYTES % (AUTO) 8.5 % (2.0-12.0); NEUTROPHILS # (AUTO) 4.7 K/uL (1.8-8.9); PLATELET COUNT (AUTO) 287 K/uL (150-450); WHITE BLOOD COUNT (AUTO) 7.7 K/uL (4.3-11.0)
[2024-04-25 12:40] LABS: CALCIUM, SERUM 9.3 mg/dL (8.5-10.1); CREATININE 0.6 mg/dL (0.6-1.3)
== END 2024-04-25 15:00 | disposition home or self-care (01) ==
LOC: DS 10:53
PROVIDERS: ATTEND Surgery
DX: Z12.11 Encounter for screening for malignant neoplasm of colon (principal); D12.5 Benign neoplasm of sigmoid colon; K63.89 Other specified diseases of intestine; K31.89 Other diseases of stomach and duodenum; K21.00 Gastro-esophageal reflux disease with esophagitis, without bleeding; K44.9 Diaphragmatic hernia without obstruction or gangrene; K26.9 Duodenal ulcer, unspecified as acute or chronic, without hemorrhage or perforation; I10 Essential (primary) hypertension; E78.00 Pure hypercholesterolemia, unspecified; E11.9 Type 2 diabetes mellitus without complications; G89.29 Other chronic pain; M19.90 Unspecified osteoarthritis, unspecified site; F17.210 Nicotine dependence, cigarettes, uncomplicated; Z79.899 Other long term (current) drug therapy; Z86.0109 Personal history of other colon polyps; Z90.89 Acquired absence of other organs; Z90.49 Acquired absence of other specified parts of digestive tract; Z80.1 Family history of malignant neoplasm of trachea, bronchus and lung; Z82.49 Family history of ischemic heart disease and other diseases of the circulatory system
CPT/HCPCS: 36415; 43239; 45380; 71045; 80048; 85025; 88304; 88313; 88342; 93005; J2003; J2704; J7030